=== PATIENT | female | born 1995 | race Caucasian/White ===

== ENCOUNTER 2017-09-22 21:07 | Inpatient (IN) | payer MEDICAID ==
[~2017-09-22] VITALS: Ht 152.4 cm; Wt 59.0 kg
[~2017-09-22 21:07] MED LIST: DEXAMETHASONE SOD PHOS 4 MG/ML VIAL IV ONE; LIDOCAINE HCL 1% PF 5 ML SYRINGE OTHER ONE; ONDANSETRON HCL 4 MG/2 ML VIAL IV ONE; OXYTOCIN 10 UNIT/ML AMP IV ONE; ceFAZolin INJ 1,000 MG VIAL IV ONE; ePHEDrine/NS 25 MG/5 ML SYRINGE IV ONE
[2017-09-22] MEDS ORDERED: LACTATED RINGER'S 1000 ML INJ 1,000 ML IV ONE ×3 (22:09→23:48)
--- NOTE | 2017-09-22 22:09 | PD ---
HPI Chief Complaint Contractions and leaking fluid Date Seen: Sep 22, 2017 Time Seen: 22:04 Travel History International Travel<30 Days: No Contact w/Intl Traveler<30Days: No Known Affected Area: No History of Present Illness HPI 21-year-old who is at 35 weeks and 6 days comes in complaining of contractions off and on since last Friday and leaking fluid that began at 4 PM this afternoon. She states contractions have gotten worse through this evening. Patient has had 2 prior sections and states that she is otherwise had an uncomplicated Weeks Gestation: 35 (35.6) Para: 2 : 5 Miscarriage: 1 : 1 History Past Medical History Narrative Medical Hepatitis C positive Medical History: Denies Significant Hx Obstetric History Obstetric History section 2 Family History Family History: Negative Social History Alcohol Use: No Tobacco Use: No Substance Abuse: No Allergies-Medications (Allergen,Severity, Reaction): Coded Allergies: Penicillins (Verified Allergy, Mild, Rash, 09/22/17) Sulfa (Sulfonamide Antibiotics) (Verified Allergy, Mild, Rash, 09/22/17) Review of Systems Except as stated in HPI: all other systems reviewed are Neg Physical Exam Narrative GENERAL: Well-nourished, well-developed patient. SKIN: Warm and dry. HEAD: Normocephalic and atraumatic. EYES: No scleral icterus. No injection or drainage. ENT: No nasal drainage noted. Mucous membranes pink. Airway patent. NECK: Supple, trachea midline. No JVD. CARDIOVASCULAR: Regular rate and rhythm without murmurs, gallops, or rubs. RESPIRATORY: Breath sounds equal bilaterally. No accessory muscle use. ABDOMEN/GI: Abdomen soft, non-tender, bowel sounds present, no rebound, no guarding Gravid to [33-] weeks size Fundal Height: [-] GENITOURINARY: External Genitalia: intact and normal in appearance BUS glands: [-] Normal Cervix: [-] Anterior Dilatation: [-] 4 Effacement: [-] 100% effaced Station: [-] -2 Presentation: [-] Vertex Membranes: [intact or ruptured] amnisure positive Uterine Contractions: [-] Every 5 FHT's: Category: [-] 1 Baseline: [-] 140 Reactive: [-] Moderate Variability: [-] Moderate Decels: [-] Absent EXTREMITIES: No cyanosis or edema. BACK: Nontender without obvious deformity. No CVA tenderness. NEUROLOGICAL: Awake and alert. Motor and sensory grossly within normal limits. Five out of 5 muscle strength in all muscle groups. Normal speech. Data Data Vital Signs Reviewed: Yes [facility] Medical Record Reviewed: Yes Plan 21-year-old who is at 35 weeks 6 days with rupture membranes, labor, and 2 prior sections Admit for section Diagnosis Diagnosis: Primary Impression: 35 weeks gestation of Additional Impressions: Premature uterine contractions in third trimester, antepartum Previous section complicating , antepartum condition or complication Audrey Kim MD Sep 22, 2017 22:09
[2017-09-22] MEDS ORDERED: PREN29TA PO (22:31)
[2017-09-22 22:32] LABS: AUTOMATED NEUTROPHIL # 6.2 TH/MM3 (1.8-7.7); BASOPHIL % 0.3 % (0.0-2.0); EOSINOPHIL # 0.1 TH/MM3 (0-0.4); EOSINOPHIL % 1.1 % (0.0-4.0); HEMATOCRIT 32.4 % (35.0-46.0); HEMOGLOBIN 10.9 GM/DL (11.6-15.3); LYMPHOCYTE # 3.3 TH/MM3 (1.0-4.8); MEAN CELL VOLUME 88.3 FL (80.0-100.0); MEAN CORPUSCULAR HEMOGLOBIN 29.7 PG (27.0-34.0); MEAN CORPUSCULAR HGB CONC 33.7 % (32.0-36.0); MEAN PLATELET VOLUME 8.6 FL (7.0-11.0); MONO % 6.9 % (0.0-8.0); MONOCYTE # 0.7 TH/MM3 (0-0.9); NEUT % 59.7 % (16.0-70.0); PLATELET COUNT 280 TH/MM3 (150-450); RED BLOOD COUNT 3.67 MIL/MM3 (4.00-5.30); RED CELL DISTRIBUTION WIDTH 15.4 % (11.6-17.2); WHITE BLOOD COUNT 10.4 TH/MM3 (4.0-11.0)
[2017-09-22] MEDS ORDERED: MORPHINE SULFATE PF 5 MG/10 ML VIAL ONE (22:32)
[2017-09-22] MEDS ORDERED: LACTATED RINGER'S 1000 ML INJ 1,000 ML IV SCH (22:39)
[2017-09-22] MEDS ORDERED: EPIDURAL-DIPHENHYDRAMINE HCL 50 MG/ML VIAL IV PUSH PRN (22:40)
[2017-09-22] MEDS ORDERED: EPIDURAL-NALOXONE HCL 0.4 MG/ML AMP IV PUSH PRN (22:40)
[2017-09-22] MEDS ORDERED: EPIDURAL-NO SYSTEMIC NARCOTICS PRN (22:40)
[2017-09-22] MEDS ORDERED: EPIDURAL-DO NOT ADMINISTER ANTICOAGULANTS PRN (22:40)
--- NOTE | 2017-09-22 22:43 | HHI.HP ---
History & Physical H&P HPI HPI Chief Complaint Contractions and leaking fluid Date Seen: Sep 22, 2017 Time Seen: 22:04 Travel History International Travel<30 Days: No Contact w/Intl Traveler<30Days: No Known Affected Area: No History of Present Illness HPI 21-year-old who is at 35 weeks and 6 days comes in complaining of contractions off and on since last Friday and leaking fluid that began at 4 PM this afternoon. She states contractions have gotten worse through this evening. Patient has had 2 prior sections and states that she is otherwise had an uncomplicated Weeks Gestation: 35 (35.6) Para: 2 : 5 Miscarriage: 1 : 1 History (Limited) History Past Medical History Narrative Medical Hepatitis C positive Medical History: Denies Significant Hx Obstetric History Obstetric History section 2 Family History Family History: Negative Social History Alcohol Use: No Tobacco Use: No Substance Abuse: No Allergies-Medications Allergies-Medications (Allergen,Severity, Reaction): Coded Allergies: Penicillins (Verified Allergy, Mild, Rash, 09/22/17) Sulfa (Sulfonamide Antibiotics) (Verified Allergy, Mild, Rash, 09/22/17) ROS Review of Systems Except as stated in HPI: all other systems reviewed are Neg Physical Exam Physical Exam Narrative GENERAL: Well-nourished, well-developed patient. SKIN: Warm and dry. HEAD: Normocephalic and atraumatic. EYES: No scleral icterus. No injection or drainage. ENT: No nasal drainage noted. Mucous membranes pink. Airway patent. NECK: Supple, trachea midline. No JVD. CARDIOVASCULAR: Regular rate and rhythm without murmurs, gallops, or rubs. RESPIRATORY: Breath sounds equal bilaterally. No accessory muscle use. ABDOMEN/GI: Abdomen soft, non-tender, bowel sounds present, no rebound, no guarding Gravid to [33-] weeks size Fundal Height: [-] GENITOURINARY: External Genitalia: intact and normal in appearance BUS glands: [-] Normal Cervix: [-] Anterior Dilatation: [-] 4 Effacement: [-] 100% effaced Station: [-] -2 Presentation: [-] Vertex Membranes: [intact or ruptured] amnisure positive Uterine Contractions: [-] Every 5 FHT's: Category: [-] 1 Baseline: [-] 140 Reactive: [-] Moderate Variability: [-] Moderate Decels: [-] Absent EXTREMITIES: No cyanosis or edema. BACK: Nontender without obvious deformity. No CVA tenderness. NEUROLOGICAL: Awake and alert. Motor and sensory grossly within normal limits. Five out of 5 muscle strength in all muscle groups. Normal speech. Data Data Data Vital Signs Reviewed: Yes MDM MDM Medical Record Reviewed: Yes Plan 21-year-old who is at 35 weeks 6 days with rupture membranes, labor, and 2 prior sections Admit for section Diagnosis Diagnosis: Primary Impression: 35 weeks gestation of Additional Impressions: Premature uterine contractions in third trimester, antepartum Previous section complicating , antepartum condition or complication Audrey Kim MD Sep 22, 2017 22:43
[2017-09-22] MEDS ORDERED: ceFAZolin 2 GM PREMIX 50 ML IV SCH (23:15)
--- NOTE | 2017-09-22 23:32 | PD.OB.DELI ---
Procedure Note Section Procedure Pre Op Diagnosis: (1) 35 weeks gestation of (2) Premature uterine contractions in third trimester, antepartum (3) Previous section complicating , antepartum condition or complication (4) Premature rupture of membranes (PROM), onset of labor within 24 hours, antepartum, Post Op Diagnosis: Performed by Audrey Kim Procedure: Repeat Low Transverse Sec Indication for delivery: Desired elective repeat Informed consent obtained: For anesthesia, For procedure Confirmed correct: Time-out taken Anesthesia: Spinal Medication prior to procedure: Antibiotics, IV Urinary catheter: Inserted using sterile technique, To dependent drainage Sterile preparation: Duraprep Position: Supine with wedge to left side Operative Features Skin Incision: Pfannenstiel Uterine Incision: Low transverse w/knife / blunt ext Membranes Ruptured: Previously Presentation: Occiput anterior, Vertex Delivery date: Sep 22, 2017 Delivery time: 11:01 Delivery of : Uneventful Infant: Female One Minute : 7 Five Minute : 8 Weight: 2710gms Status of infant: Viable Placenta delivered: Intact Estimated blood loss: 600cc Procedure tolerated: Well Maternal Condition: Stable Condition: Stable Audrey Kim MD Sep 22, 2017 23:32
[2017-09-22 23:36] VITALS: BP 114/74; PULSE 80; RESP 17; TEMP 97.6; O2SAT 99
[2017-09-22] MEDS ORDERED: OXYTOCIN 30 UNITS-500ML PREMIX 500 ML IV ONE (23:45)
[2017-09-22] MEDS ORDERED: CITRIC ACID-SODIUM CITRATE LIQ 30 ML UDC PO SCH (23:45)
[2017-09-22] MEDS ORDERED: SIMETHICONE 80 MG CHEWABLE TAB PO PRN (23:45)
[2017-09-22] MEDS ORDERED: ONDANSETRON HCL 4 MG/2 ML VIAL IV PUSH PRN (23:45)
[2017-09-22] MEDS ORDERED: oxyCODONE/ACETAMINOPHEN 5 MG/325 MG TAB PO PRN (23:45)
[2017-09-22] MEDS ORDERED: SODIUM CHLORIDE 0.9% FLUSH 10 ML FLUSH IV FLUSH PRN (23:45)
[2017-09-22 23:53] VITALS: BP 113/70; PULSE 68; RESP 19; O2SAT 98
[2017-09-23] VITALS (10 sets, daily range): BP systolic 100–127; BP diastolic 62–83; PULSE 50–100; RESP 16–20; TEMP 97.6–98.8; O2SAT 98–100
[2017-09-23] MEDS ORDERED: OXYTOCIN 30 UNITS-500ML PREMIX 500 ML ONE (00:19)
[2017-09-23] MEDS: IBUPROFEN 600 MG TAB PO PRN ×3 (02:20→21:14)
[2017-09-23] MEDS: EPIDURAL-DIPHENHYDRAMINE HCL 50 MG CAP PO PRN ×2 (02:22→09:25)
[2017-09-23] MEDS: LACTATED RINGER'S 1000 ML INJ 1,000 ML IV SCH ×2 (04:25→17:39)
[2017-09-23] MEDS ORDERED: OXYTOCIN 30 UNITS-500ML PREMIX 500 ML IV PRN (04:45)
[2017-09-23 05:57] LABS: AUTOMATED NEUTROPHIL # 12.5 TH/MM3 (1.8-7.7); BASOPHIL % 0.3 % (0.0-2.0); HEMATOCRIT 31.2 % (35.0-46.0); HEMOGLOBIN 10.4 GM/DL (11.6-15.3); LYMPH % 15.3 % (9.0-44.0); LYMPHOCYTE # 2.4 TH/MM3 (1.0-4.8); MEAN CORPUSCULAR HEMOGLOBIN 29.7 PG (27.0-34.0); MEAN CORPUSCULAR HGB CONC 33.3 % (32.0-36.0); MEAN PLATELET VOLUME 8.5 FL (7.0-11.0); MONO % 4.4 % (0.0-8.0); MONOCYTE # 0.7 TH/MM3 (0-0.9); PLATELET COUNT 250 TH/MM3 (150-450); RED BLOOD COUNT 3.51 MIL/MM3 (4.00-5.30); RED CELL DISTRIBUTION WIDTH 15.2 % (11.6-17.2); WHITE BLOOD COUNT 15.6 TH/MM3 (4.0-11.0)
--- NOTE | 2017-09-23 07:04 | MP ---
cc: Audrey Kim MD DATE OF OPERATION: 09/22/2017 PREOPERATIVE DIAGNOSES: 1. 35 weeks gestation. 2. Premature labor. 3. Premature rupture of membranes. 4. Previous section x 2. POSTOPERATIVE DIAGNOSES: 1. 35 weeks gestation. 2. Premature labor. 3. Premature rupture of membranes. 4. Previous section x 2. PROCEDURE PERFORMED: Repeat low transverse section without extension. ESTIMATED BLOOD LOSS: 600 mL. ANESTHESIA: Spinal. COMPLICATIONS: No complications. COUNTS: Correct x 3. DRAINS: Pepper to gravity. MEDICATIONS: Ancef 2 grams given preoperatively. FINDINGS: 1. Normal uterus, tubes and ovaries. 2. Clear amniotic fluid. 3. Significant omental adhesions to the uterus and the anterior peritoneum. 4. female vertex presentation. weight was 10 grams. 's were 7 and 8. DESCRIPTION OF PROCEDURE: The patient was taken back to the operating room, prepped and draped in usual sterile fashion, placed in dorsal supine position with a wedge to her left side. After adequate anesthetic was administered, a Pfannenstiel incision was made and her old scar was removed. Incision was then taken down to the fascia. The fascia was nicked in the midline and extended bilaterally and taken off the rectus muscles. Peritoneum was entered and the omentum here was adhesed to the lower pelvic structures. Adhesions were taken down both sharply with Metzenbaum scissors as well as with the Bovie, taking care to ensure hemostasis. The vesicouterine peritoneum was taken down. A transverse hysterotomy incision was made bluntly extended bilaterally. The infant was delivered into the operative field. The rest of the body was delivered. A 45 second cord clamping delay preceded the delivery of the placenta intact spontaneously. Endometrial cavity was curetted with a moist laparotomy sponge. The transverse hysterotomy incision was repaired using a running locking #1 chromic suture with good hemostasis. At closure, the omentum was carefully inspected here to ensure hemostasis and then the fascia was closed with a #1 PDS. Subcutaneous tissue was made hemostatic with the Bovie and a subcuticular suture of 4-0 Monocryl was placed into the skin. The patient tolerated the procedure well and was taken back to the recovery room in good condition. MD TIAGO Ariza/FELIX , 11:35 PM , 07:03 AM
[2017-09-23] MEDS: oxyCODONE/ACETAMINOPHEN 5 MG/325 MG TAB PO PRN ×4 (08:00→21:13)
--- NOTE | 2017-09-23 08:28 | HHI.OB ---
Subjective Remarks 21 year old female s/p repeat C/S at 35 wks gestation, POD1. AFVSS. Patient reports she is feeling well. Bleeding is decreasing and pain is well- controlled. She is breast feeding. Baby is currently in the NICU. Ambulating without difficulties. She is tolerating a diet without nausea or vomiting. She has not had a bowel movement. She has not passed gas. Denies chest pain, dysuria , shortness of breath, or calf pain. Objective Vitals/I&O Vital Signs Date Time Temp Pulse Resp B/P (MAP) Pulse Ox O2 Delivery O2 Flow Rate FiO2 09/23/17 08:00 98.8 09/23/17 08:00 67 18 105/63 (77) 09/23/17 05:00 99 09/23/17 04:49 98.2 55 17 114/69 (84) 09/23/17 01:23 98.0 50 17 127/74 (91) 09/23/17 00:30 97.6 57 20 117/83 (94) 98 09/23/17 00:13 16 100 09/23/17 00:13 61 116/80 (92) 09/22/17 23:53 19 98 09/22/17 23:53 68 113/70 (84) 09/22/17 23:36 97.6 99 09/22/17 23:36 80 17 114/74 (87) Result Diagram: 09/23/17 0548 Objective Remarks GENERAL: Well-nourished, well-developed patient. CARDIOVASCULAR: Regular rate and rhythm without murmurs, gallops, or rubs. RESPIRATORY: Breath sounds equal bilaterally. No accessory muscle use. ABDOMEN/GI: Abdomen soft, non-tender, bowel sounds present. Incision: Clean, dry and intact. Fundus: Firm, non-tender at umbilicus. GENITOURINARY: Light to moderate bleeding. EXTREMITIES: No cyanosis or edema, non-tender, without signs of DVT. Medications and IVs Current Medications Medications (Trade) Dose Ordered Sig/Raul Route Start Time Stop Time Status Last Admin Lactated Ringer's 1,000 ml @ 100 mls/hr Q10H IV 09/23/17 04:35 09/24/17 00:34 09/23/17 04:25 Oxytocin 500 ml @ 100 mls/hr UNSCH X1 PRN IV 09/23/17 04:45 09/24/17 04:44 (NS Flush) 2 ml BID IV FLUSH 09/23/17 09:00 (NS Flush) 2 ml UNSCH PRN IV FLUSH 09/22/17 23:45 (Mylicon Chew) 80 mg QID PRN PO 09/22/17 23:45 (Motrin) 600 mg Q6H PRN PO 09/22/17 23:45 09/23/17 02:20 (Percocet 5-325 Mg) 1 tab Q4H PRN PO 09/22/17 23:45 (Percocet 5-325 Mg) 2 tab Q4H PRN PO 09/22/17 23:45 09/23/17 08:00 (M-M-R Ii Inj) 0.5 ml ONCE ONCE SQ 09/23/17 16:00 09/23/17 16:01 (Boostrix Inj) 0.5 ml ONCE ONCE IM 09/23/17 16:00 09/23/17 16:01 (Zofran Inj) 4 mg Q6H PRN IV PUSH 09/22/17 23:45 Miscellaneous Information NO SYSTEMIC NARCOTICS TO BE GIVEN FO... UNSCH PRN .XX 09/22/17 22:40 09/23/17 22:39 (Narcan Inj) 0.4 mg UNSCH PRN IV PUSH 09/22/17 22:40 09/23/17 22:39 (Benadryl Inj) 25 mg Q6H PRN IV PUSH 09/22/17 22:40 09/23/17 22:39 (Benadryl) 50 mg Q6H PRN PO 09/22/17 22:40 09/23/17 22:39 09/23/17 02:22 Miscellaneous Information ALL NURSING DEPARTMENTS UNSCH PRN .XX 09/22/17 22:40 09/23/17 22:39 Assessment/Plan Assessment and Plan 21 yo female s/p repeatC/S, POD 1 - AFVSS - Continue routine care - Motrin and Percocet PRN pain - Encourage OOB - Pelvic rest x 6 wks. Will need 1 week incision check. - Contraception: Undecided - Anticipate D/C 09/24-09/25 Mirna Rowell MD R1 Sep 23, 2017 08:28
[2017-09-23] MEDS: SODIUM CHLORIDE 0.9% FLUSH 10 ML FLUSH IV FLUSH SCH (09:18)
[2017-09-23] MEDS: NICOTINE 14 MG/24 HR PATCH TOPICAL SCH (14:15)
[2017-09-23] MEDS ORDERED: MEASLES, MUMPS, RUBELLA VACCINE 0.5 ML VIAL SQ ONE (16:00)
[2017-09-23] MEDS ORDERED: DIPHTH/TETANUS/ACEL PERTUSSIS (BOOSTER) 0.5 ML VIAL/PFS IM ONE (16:00)
[2017-09-24] MEDS: diphenhydrAMINE HCL 50 MG CAP PO PRN (01:40)
[2017-09-24] MEDS: oxyCODONE/ACETAMINOPHEN 5 MG/325 MG TAB PO PRN ×6 (01:40→23:07)
[2017-09-24] MEDS: IBUPROFEN 600 MG TAB PO PRN ×3 (06:18→23:07)
[2017-09-24 07:30] VITALS: BP 110/74; PULSE 88; TEMP 97.3
[2017-09-24] MEDS ORDERED: REMOVE OLD NICODERM (NICOTINE) PATCH T-DERMAL SCH (09:00)
[2017-09-24] MEDS: SODIUM CHLORIDE 0.9% FLUSH 10 ML FLUSH IV FLUSH SCH (09:10)
[2017-09-24] MEDS: NICOTINE 14 MG/24 HR PATCH TOPICAL SCH (09:44)
--- NOTE | 2017-09-24 10:40 | HHI.OB ---
Subjective Remarks 21 year old female s/p repeat C/S at 35 wks gestation, POD2. AFVSS. Patient reports she is feeling well. Bleeding is decreasing and pain is well- controlled. She is breast feeding. Baby is currently in the NICU. Ambulating without difficulties. She is tolerating a diet without nausea or vomiting. She has not had a bowel movement. She has not passed gas. Denies chest pain, dysuria , shortness of breath, or calf pain. Objective Vitals/I&O Vital Signs Date Time Temp Pulse Resp B/P (MAP) Pulse Ox O2 Delivery O2 Flow Rate FiO2 09/24/17 07:30 97.3 09/24/17 07:30 88 110/74 (86) 09/23/17 20:27 98.2 100 18 121/78 (92) 09/23/17 17:50 97.8 96 16 108/76 (87) 09/23/17 13:20 97.8 16 09/23/17 13:19 82 100/62 (75) Result Diagram: 09/23/17 0548 Objective Remarks GENERAL: Well-nourished, well-developed patient. CARDIOVASCULAR: Regular rate and rhythm without murmurs, gallops, or rubs. RESPIRATORY: Breath sounds equal bilaterally. No accessory muscle use. ABDOMEN/GI: Abdomen soft, non-tender, bowel sounds present. Incision: Clean, dry and intact. Fundus: Firm, non-tender at umbilicus. GENITOURINARY: Light to moderate bleeding. EXTREMITIES: No cyanosis or edema, non-tender, without signs of DVT. Medications and IVs Current Medications Medications (Trade) Dose Ordered Sig/Raul Route Start Time Stop Time Status Last Admin (NS Flush) 2 ml BID IV FLUSH 09/23/17 09:00 (NS Flush) 2 ml UNSCH PRN IV FLUSH 09/22/17 23:45 (Mylicon Chew) 80 mg QID PRN PO 09/22/17 23:45 (Motrin) 600 mg Q6H PRN PO 09/22/17 23:45 09/24/17 06:18 (Percocet 5-325 Mg) 1 tab Q4H PRN PO 09/22/17 23:45 (Percocet 5-325 Mg) 2 tab Q4H PRN PO 09/22/17 23:45 09/24/17 10:29 (Zofran Inj) 4 mg Q6H PRN IV PUSH 09/22/17 23:45 (Habitrol 14 Mg Patch.24 Hr) 1 patch DAILY TOPICAL 09/23/17 13:00 09/23/17 14:15 Miscellaneous Information 1 DAILY T-DERMAL 09/24/17 09:00 09/24/17 09:44 (Benadryl) 50 mg Q6H PRN PO 09/24/17 01:00 09/24/17 01:40 Assessment/Plan Assessment and Plan 21 yo female s/p repeatC/S, POD 2. - AFVSS - Continue routine care - Motrin and Percocet PRN pain - Encourage OOB - Pelvic rest x 6 wks. Will need 1 week incision check. - Contraception: Nexplanon, will discuss with OB physician - Anticipate D/C tomorrow Mirna Rowell MD R1 Sep 24, 2017 10:40
[2017-09-24 20:34] VITALS: BP 112/77; PULSE 80; RESP 18; TEMP 97.7
[2017-09-25] MEDS: oxyCODONE/ACETAMINOPHEN 5 MG/325 MG TAB PO PRN ×3 (03:53→11:27)
[2017-09-25] MEDS: IBUPROFEN 600 MG TAB PO PRN (07:43)
[2017-09-25] MEDS: diphenhydrAMINE HCL 50 MG CAP PO PRN (07:43)
[2017-09-25 08:00] VITALS: BP 120/80; PULSE 70; RESP 18; TEMP 97.9; O2SAT 98
[2017-09-25] MEDS ORDERED: IBUP-232 PO (09:29)
[2017-09-25] MEDS ORDERED: OXYC1TAB63 PO (09:29)
[2017-09-25] MEDS ORDERED: COLA100C5 PO (09:30)
--- NOTE | 2017-09-25 09:31 | HHI.DCPOC ---
Discharge Care Plan Diagnosis: (1) S/P repeat low transverse Report Symptoms to Your Doctor -Temperature above 100.5 degrees -Redness, of incision or excessive or foul smelling drainage -Unusual pain or calf pain -Increased vaginal bleeding -Painful or difficulty urinating -Feelings of extreme sadness or anxiety after 2 weeks Goals to Promote Your Health * To prevent worsening of your condition and complications * To maintain your health at the optimal level Directions to Meet Your Goals Take your medications as prescribed Follow your dietary instruction Follow activity as directed Ensure plenty of rest for recovery Drink fluids for hydration Keep your appointments as scheduled Take your immunizations and boosters as scheduled If your symptoms worsen call your PCP, if no PCP go to Urgent Care Center or Emergency Room Smoking is Dangerous to Your Health. Avoid second hand smoke Call the 24-hour crisis hotline for domestic abuse at Mirna Rowell MD R1 Sep 25, 2017 09:31
== END 2017-09-25 11:33 | disposition home or self-care (01) | DRG 765 ==
LOC: HOBED 21:07 → H2EB 22:04 → H1EA 09-23 01:05
PROVIDERS: ADMIT Obstetrics & Gynecology Obstetrics; ATTEND Obstetrics & Gynecology Obstetrics
PROC: 10D00Z1 Extraction of Products of Conception, Low, Open Approach (ICD-10-PCS; principal; 2017-09-22)
PROC: 0UN90ZZ Release Uterus, Open Approach (ICD-10-PCS; 2017-09-22)
PROC: 0HB7XZZ Excision of Abdomen Skin, External Approach (ICD-10-PCS; 2017-09-22)
DX: O60.14X0 Preterm labor third trimester with preterm delivery third trimester, not applicable or unspecified (principal); O98.42 Viral hepatitis complicating childbirth; B19.20 Unspecified viral hepatitis C without hepatic coma; O34.219 Maternal care for unspecified type scar from previous cesarean delivery; O75.89 Other specified complications of labor and delivery; K66.0 Peritoneal adhesions (postprocedural) (postinfection); O42.013 Preterm premature rupture of membranes, onset of labor within 24 hours of rupture, third trimester; Z37.0 Single live birth; Z3A.35 35 weeks gestation of pregnancy
CPT/HCPCS: 80307; 84112; 85025; 86703; 86850; 86900; 86901; 99283; G0481; J0690; J1100; J2274; J2405; J2590; J3010; J7120; Q0163